=== PATIENT | female | born 1990 | race Caucasian/White ===

== ENCOUNTER → 2016-07-02 | Outpatient (CLI) | payer OTHER | LOC: RAD 14:53 | DX: M54.2 Cervicalgia (principal); M54.9 Dorsalgia, unspecified; M25.562 Pain in left knee; M25.532 Pain in left wrist | CPT/HCPCS: 72050; 72072; 72110; 73110; 73564 ==

== ENCOUNTER 2021-10-16 23:56 | Emergency (ER) | payer OTHER ==
[~2021-10-16 23:56] MED LIST changes: -EPIPEN 2-P0.3 MG/0.3 INJ; -HYDROCODON-ACE1 EAC4 PO; -HYDROCODON-ACE1 EAC6 PO
[2021-10-17] MEDS ORDERED: HYDROCODON-ACE1 EAC4 PO (02:03)
[2021-10-17] MEDS ORDERED: EPIPEN 2-P0.3 MG/0.3 INJ (02:03)
== END 2021-10-17 09:28 | disposition home or self-care (01) ==
LOC: ER1 23:56
DX: L27.1 Localized skin eruption due to drugs and medicaments taken internally (principal); T40.2X5A Adverse effect of other opioids, initial encounter; F17.210 Nicotine dependence, cigarettes, uncomplicated; Z88.2 Allergy status to sulfonamides
CPT/HCPCS: 96372; 96374; 96375; 99283; J0171; J1200; J2930

== ENCOUNTER → 2021-10-16 | Day surgery (SDC) | payer OTHER ==
[~2021-10-16] MED LIST: COLACE 100MG C100 MG PO; EPIPEN 2-P0.3 MG/0.3 INJ; HYDROCODON-ACE1 EAC4 PO; HYDROCODON-ACE1 EAC6 PO; IBU600 MG PO; IBUPROFEN600 MG PO; LORTAB 5-325 M1 EACH PO; PERCOCET 5/325 T1 EA PO; REMERON15 MG PO
== END | disposition home or self-care (01) ==
LOC: OR 04:33
DX: K42.9 Umbilical hernia without obstruction or gangrene (principal); K21.9 Gastro-esophageal reflux disease without esophagitis; M62.08 Separation of muscle (nontraumatic), other site; B19.20 Unspecified viral hepatitis C without hepatic coma; F17.210 Nicotine dependence, cigarettes, uncomplicated; F31.9 Bipolar disorder, unspecified; F41.9 Anxiety disorder, unspecified; Z79.899 Other long term (current) drug therapy
CPT/HCPCS: 84703; C1713; C1781; J0690; J1100; J1170; J1885; J2001; J2250; J2405; J2704; J2710; J3010